=== PATIENT | female | born 1940 | race Two or more races ===

== ENCOUNTER 2021-05-13 12:15 | Inpatient (IN) | payer OTHER ==
[~2021-05-13] VITALS: Ht 154.9 cm; Wt 95.3 kg
[2021-05-13] MEDS ORDERED: VERELAN120 MG PO (15:46)
[2021-05-13] MEDS ORDERED: PRAVASTATIN SOD40 MG PO (15:46)
[2021-05-13] MEDS ORDERED: COZAAR100 MG PO (15:46)
[2021-05-13] MEDS ORDERED: HUMULIN N100 UNIT/2 (15:48)
== END 2021-05-22 12:51 | disposition home or self-care (01) | DRG 735 ==
LOC: O/R 05-19 05:00 → OB/GYN 05-19 05:00 → SURH 05-19 10:30 → OB/GYN 05-19 11:14 → SURH 05-19 12:15 → OB/GYN 05-22 12:51
PROVIDERS: ADMIT Specialist; ATTEND Specialist
PROC: 0UT90ZZ Resection of Uterus, Open Approach (ICD-10-PCS; 2021-05-19)
PROC: 0UT20ZZ Resection of Bilateral Ovaries, Open Approach (ICD-10-PCS; 2021-05-19)
PROC: 0UT70ZZ Resection of Bilateral Fallopian Tubes, Open Approach (ICD-10-PCS; 2021-05-19)
PROC: 0DNW0ZZ Release Peritoneum, Open Approach (ICD-10-PCS; 2021-05-19)
PROC: 0TN70ZZ Release Left Ureter, Open Approach (ICD-10-PCS; 2021-05-19)
PROC: 0TN60ZZ Release Right Ureter, Open Approach (ICD-10-PCS; 2021-05-19)
PROC: 0DTU0ZZ Resection of Omentum, Open Approach (ICD-10-PCS; 2021-05-19)
PROC: 3E1M38Z Irrigation of Peritoneal Cavity using Irrigating Substance, Percutaneous Approach (ICD-10-PCS; 2021-05-19)
PROC: 07TD0ZZ Resection of Aortic Lymphatic, Open Approach (ICD-10-PCS; 2021-05-19)
PROC: 07TC0ZZ Resection of Pelvis Lymphatic, Open Approach (ICD-10-PCS; principal; 2021-05-19 10:30)
DX: C54.1 Malignant neoplasm of endometrium (principal); N83.292 Other ovarian cyst, left side; N83.291 Other ovarian cyst, right side; Z20.822 Contact with and (suspected) exposure to COVID-19